=== PATIENT | female | born 1990 | race African-American/Black ===

== ENCOUNTER 2016-09-15 17:32 | Emergency (ER) | payer OTHER ==
[~2016-09-15] VITALS: Ht 152.4 cm; Wt 83.0 kg
[~2016-09-15 17:32] MED LIST: DOXY100T18 PO; NAPR500 PO
[2016-09-15 17:37] VITALS: BP 107/72; PULSE 93; RESP 16; TEMP 98.3; O2SAT 100
--- NOTE | 2016-09-15 18:11 | PD ---
HPI Chief Complaint: Skin Problem Time Seen by Provider: 18:06 Travel History International Travel<30 days: No Contact w/Intl Traveler<30days: No Traveled to known affect area: No History of Present Illness HPI Patient comes in complaining of a spider bite to her left lateral calf that occurred 2 days ago. Patient states she is uncertain what the spider looked like. Patient states she went to urgent care yesterday and was prescribed Bactrim that she has been taking it last dose this morning. Patient states feels as though it is got progressively worse. Patient noticed a blister today that was not there yesterday. Describes pain as aching and throbbing like in nature without radiation. Pain is worse with standing. Denies any fevers, nausea, vomiting, diarrhea, or . PFSH Past Medical History Medical History: Denies Significant Hx Tetanus Vaccination: > 5 Years Influenza Vaccination: No ?: Not LMP: 09/02/16 Past Surgical History Surgical History: No Previous Surgery Social History Alcohol Use: Yes (Social) Tobacco Use: Yes (Social) Substance Use: Yes (Marijuana socially) Allergies-Medications (Allergen,Severity, Reaction): Coded Allergies: No Known Allergies (Unverified , 09/15/16) Reported Meds & Prescriptions Reported Meds & Active Scripts Active Naprosyn (Naproxen) 500 Mg Tab 500 Mg PO Q12HR PRN Keflex (Cephalexin) 500 Mg Cap 500 Mg PO Q8H 7 Days Naprosyn (Naproxen) 500 Mg Tab 500 Mg PO BID PRN Doxycycline Monohydrate 100 mg 100 Mg Cap 100 Mg PO BID 14 Days Review of Systems Except as stated in HPI: all other systems reviewed are Neg Physical Exam Narrative GENERAL: Well-developed, overly nourished, in no acute distress, and non-ill appearing. SKIN: Blister noted left lateral calf has clear and purulent drainage noted. There is mild surrounding erythematous. There is no crepitus, induration, or other fluctuation noted. HEAD: Atraumatic. Normocephalic. EYES: Pupils equal and round. EOMI. No scleral icterus. No injection or drainage. ENT: No nasal bleeding or discharge. Mucous membranes pink and moist. NECK: Trachea midline. Supple. No nuclear rigidity. RESPIRATORY: No accessory muscle use. No respiratory distress. MUSCULOSKELETAL: No obvious deformities. No clubbing. No cyanosis. No edema. Full range of motion. NEUROLOGICAL: Awake and alert. No obvious cranial nerve deficits. Motor grossly within normal limits. Normal speech. PSYCHIATRIC: Appropriate mood and affect; insight and judgment normal. Data Data Last Documented VS Vital Signs Date Time Temp Pulse Resp B/P Pulse Ox O2 Delivery O2 Flow Rate FiO2 09/15/16 17:37 98.3 93 16 107/72 100 Orders Wound Culture And Gram Stain (09/15/16 17:58) Clindamycin Inj (Cleocin Inj) (09/15/16 18:15) MDM Medical Decision Making Medical Screen Exam Complete: Yes Emergency Medical Condition: Yes Differential Diagnosis Abscess, cellulitis, insect bite, allergic reaction, other Narrative Course The patient has cellulitis. There is no evidence of necrotizing fasciitis at this time. There is no evidence of abscess. There is no evidence of local joint space involvement. There is no evidence of deep venous thrombosis. The patient will be discharged on antibiotics. The patient was given signs and symptoms warnings for worsening infection, such as spreading of redness, increasing pain , and/or swelling, associated heat, or fever and instructed to return immediately if these signs or symptoms worsen. The patient is to follow up with physician in 2 days for recheck or return here in 2 days for recheck if unable to establish outpatient follow up. Sooner if worsens or as needed. The patient agrees with plan. Patient in no obvious distress upon re-evaluation. Patient was asked if they wanted to speak to my attending, which the patient did not wish to do at this time. Any questions/concerns in reference to patient diagnosis/condition discussed and clarified prior to patient's discharge. Reinforced sheer importance of close follow up with patient's primary physician or primary care clinic. Instructed patient to return to ED immediately, if symptoms return/ worsen. Pt showed understanding of above instructions. Further instructions and recommendations were detailed in discharge paperwork. Pt ambulated without difficulty out of ED at discharge. Procedures Procedure Narrative Verbal consent was obtained. Area was cleaned and prepped. The blister was opened using an #11 blade. Cultures obtained. Patient tolerated procedure well. There was no complication. Procedure was performed with assistance of technical staff engineerCHARLOTTE Gaviria at all times. Diagnosis Primary Impression: Infected blister Additional Impression: Cellulitis Qualified Code: L03.116 - Cellulitis of left lower extremity Patient Instructions: Blister (ED), Cellulitis (ED), General Instructions Additional Instructions: Follow-up with your primary care physician or return here in 2 days for recheck. Take all medication as prescribed along with antibiotics prescribed by the urgent care yesterday. Keep wound dry and clean as possible using soap and water. Do not soak or submerge wound. Return to the emergency department if symptoms get worse. Med/Other Pt SpecificInfo: Prescription(s) given Scripts Naproxen (Naprosyn)500 Mg Lun328 Mg PO Q12HR PRN (PAIN SCALE 1 TO 10) #14 TAB Ref 0 Prov:Ronny Villaseñor MD 09/15/16 Cephalexin (Keflex)500 Mg [id number] Mg PO Q8H 7 Days Ref 0 Prov:Ronny Villaseñor MD 09/15/16 Disposition: 01 DISCHARGE HOME Condition: Stable [place] Sep 15, 2016 18:11
[2016-09-15] MEDS ORDERED: NAPR500 PO (18:12)
[2016-09-15] MEDS ORDERED: CEPH-460 PO (18:12)
[2016-09-15] MEDS ORDERED: CLINDAMYCIN PHOS 600 MG/4 ML VIAL IM ONE (18:15)
== END 2016-09-15 19:00 | disposition home or self-care (01) ==
LOC: PHEFT 17:32
DX: S80.822A Blister (nonthermal), left lower leg, initial encounter (principal); L03.116 Cellulitis of left lower limb; B95.62 Methicillin resistant Staphylococcus aureus infection as the cause of diseases classified elsewhere; Z72.0 Tobacco use
CPT/HCPCS: 10140; 86403; 87070; 87186; 87205; 96372